=== PATIENT | female | born 1985 | race Caucasian/White ===

== ENCOUNTER 2017-12-11 10:58 | Outpatient (CLI) | payer BC | END 2017-12-11 10:59 | disposition home or self-care (01) | LOC: BICRAD 10:58 | PROVIDERS: ATTEND Family Medicine | DX: R06.02 Shortness of breath (principal) | CPT/HCPCS: 71046 ==

== ENCOUNTER 2018-05-11 14:09 | Outpatient (CLI) | payer BC ==
--- NOTE | 2018-05-11 15:37 | RAD ---
LEFT RIBS THREE VIEWS: History: Patient fell, lower rib pain. FINDINGS: There is a nondisplaced anterior 9th rib fracture present. No pleural effusion or evidence of pneumot horax. IMPRESSION: Left anterior 9th rib fracture. POS: [facility]
== END 2018-05-11 14:10 | disposition home or self-care (01) ==
LOC: BICRAD 14:09
PROVIDERS: ATTEND Family Medicine
DX: R07.9 Chest pain, unspecified (principal); S22.32XA Fracture of one rib, left side, initial encounter for closed fracture